=== PATIENT | male | born 1945 | race Caucasian/White ===

== ENCOUNTER 2017-12-03 10:48 | Emergency (ER) | payer BC ==
--- NOTE | 2017-12-03 11:18 | Emergency Department Record ---
History of Present Illness - General Chief Complaint: Shortness of breath Stated Complaint: WITH A BREATH R SIDE OF CHEST HURTS Time Seen by Provider: 12/03/17 11:11 Source: Patient, Family Mode of Arrival: Ambulatory Limitations: No limitations - History of Present Illness Initial Comments: The patient is here due to a 2 day hx of mild R sided Cp mainly with deep breathing for 2-3 days. He denies any L sided CP, NEIL, sweating or nausea but he did cough up a very small amount of sputum this AM. Per the the patient has had mild coughing in the morning for some time. Presently the patient denies any pain or discomfort. MD Complaint: Cough, Shortness of breath Onset/Timin -: Days(s) Severity: Mild - Related Data Home Medications Medication Instructions Recorded Confirmed Last Taken Aspirin [Aspir-Low] 81 mg PO DAILY 12/03/17 12/03/17 12/03/17 Enalapril Maleate 2.5 mg PO DAILY 12/03/17 12/03/17 12/03/17 Multivitamin [Multiple Vitamins] 1 each PO DAILY 12/03/17 12/03/17 12/03/17 Sertraline HCl [Zoloft] 50 mg PO DAILY 12/03/17 12/03/17 12/03/17 Allergies Allergy/AdvReac Type Severity Reaction Status Date / Time No Known Drug Allergies Allergy Verified 12/03/17 11:04 Travel Screening - Travel/Exposure Within Last 30 Days Have you traveled within the last 30 days?: No - Travel/Exposure Within Last Year Have you traveled outside the [place] in the last year?: No - Additonal Travel Details Have you been exposed to anyone with a communicable illness?: No - Travel Symptoms Symptom Screening: None Review of Systems Constitutional: Denies: Chills, Fever Eyes: Denies: Eye discharge ENT: Denies: Congestion Respiratory: Reports: Cough, Hemoptysis. Denies: Dyspnea Cardiovascular: Reports: Chest pain. Denies: Arrhythmia Endocrine: Denies: Fatigue Gastrointestinal: Denies: Diarrhea Genitourinary: Denies: Dysuria Musculoskeletal: Denies: Arthralgia Past Medical History - SOCIAL HISTORY Smoking Status: Never smoker Alcohol Use: None Drug Use: None - RESPIRATORY Hx Respiratory Disorders: Yes Comment:: as a child - CARDIOVASCULAR Hx Cardio Disorders: Yes Hx Hypertension: Yes - NEURO Hx Neuro Disorders: Yes Hx Dementia: Yes - GI Hx GI Disorders: No - Hx Genitourinary Disorders: Yes Hx Kidney Stones: Yes - ENDOCRINE Hx Endocrine Disorders: Yes Hx Diabetes: Yes - MUSCULOSKELETAL Hx Musculoskeletal Disorders: Yes Hx Arthritis: Yes - PSYCH Hx Psych Problems: Yes Hx Depression: Yes - HEMATOLOGY/ONCOLOGY Hx Hematology/Oncology Disorders: Yes Hx Cancer: Yes (skin) Comment:: skin cancer removed years ago Family Medical History Any Significant Family History?: Yes Hx Cancer: Mother Hx Heart Disease: Father Hx HTN: Father, Mother Physical Exam - General General Appearance: Alert, Cooperative, No acute distress - Head Head exam: Atraumatic, Normocephalic, Normal inspection - Eye Eye exam: Normal appearance, PERRL - Neck Neck exam: Normal inspection, Full ROM. negative: Tenderness - Respiratory Respiratory exam: Normal lung sounds bilaterally. negative: Respiratory distress - Cardiovascular Cardiovascular Exam: Regular rate, Normal rhythm, Normal heart sounds - GI/Abdominal GI/Abdominal exam: Soft, Normal bowel sounds. negative: Tenderness - Extremities Extremities exam: Normal inspection, Full ROM, Normal capillary refill. negative: Calf tenderness, Pedal edema, Tenderness - Neurological Neurological exam: Alert, Normal gait. negative: Abnormal gait, Motor sensory deficit - Skin Skin exam: negative: Rash Course Vital Signs 12/03/17 11:05 Temperature 97.4 F L Pulse Rate 63 Respiratory 16 Rate Blood Pressure 120/69 Pulse Ox 95 - Reevaluation(s) Reevaluation #1: The patient is doing very well at this time. He is resting comfortably with no complaints or CP, SOB, or NEIL. I did discuss the results with the patient's and did recommend short term F/U. The patient has an appointment with his PCP in 2 weeks and his will bring the xray results and labs for further evaluation. 12/03/17 14:15 Medical Decision Making - Data Complexity MDM Data: Labs Ordered and/or Reviewed, X-Ray Ordered and/or Reviewed, EKG Ordered and/or Reviewed - Lab Data Result diagrams: 12/03/17 11:30 12/03/17 11:30 - EKG Data -: EKG Interpreted by Me EKG: No Acute Changes, Normal EKG - Radiology Data Radiology results: Report reviewed (CXR: Neg Chest CT: Neg for PE. Node RLL. Rec short term F/U. ( notified)) Disposition Disposition: Discharge Clinical Impression: Dyspnea Qualifiers: Dyspnea type: unspecified Qualified Code(s): R06.00 - Dyspnea, unspecified Disposition: Home, Self-Care Condition: (2) Stable Instructions: Dyspnea (ED) Additional Instructions: Please continue your regular medicines. Please see your family doctor in 2 weeks as planned and have him go over all the test results. Return to the ER for any problems. Forms: Patient Portal Access Time of Disposition: 14:17 Quality - Quality Measures Quality Measures: N/A - Blood Pressure Screening View Details: Yes Does Patient Have Any of the Following: No Blood Pressure Classification: Pre-Hypertensive BP Reading Systolic Measurement: 120 Diastolic Measurement: 69 Screening for High Blood Pressure: < Pre-Hypertensive BP, F/U Documented > [ G8950] Pre-Hypertensive Follow-up Interventions: Referral to alternative/primary care provider.
[2017-12-03 11:38] LABS: BASO % 0.9 % (0-6); GRAN % 74.4 % (47-80); HEMATOCRIT 48.7 % (42.0-52.0); HEMOGLOBIN 16.2 gm/dl (14.0-18.0); LYMPH % 14.2 % (16-45); MEAN CORPUSCULAR HEMOGLOBIN 27.2 pg (27-33); MEAN CORPUSCULAR HGB CONC 33.3 g/dl (32-36); MONO % 8.5 % (0-9); PLATELET COUNT 180 K/uL (130-400); RED BLOOD COUNT 5.94 M/uL (4.40-5.70); RED CELL DISTRIBUTION WIDTH 13.9 % (11.5-14.5); WHITE BLOOD COUNT W/O DIFF 4.6 K/uL (4.2-12.2)
[2017-12-03 11:48] LABS: BLOOD UREA NITROGEN 18 mg/dL (8-23); CREATININE 0.9 mg/dL (0.7-1.2); EST GLOMERULAR FILTRATION RATE > 60 mL/min
[2017-12-03 11:49] LABS: TOTAL PROTEIN 7.5 g/dL (6.6-8.7)
[2017-12-03 11:50] LABS: GLUCOSE,RANDOM 187 mg/dL (74-109)
[2017-12-03 11:53] LABS: ALB/GLOB RATIO 1.2 (1.1-1.8); ALBUMIN 4.1 g/dL (4.0-5.0); ALKALINE PHOSPHATASE 75 U/L (40-129); ALT/SGPT 19 U/L (<41); AST/SGOT 19 U/L (10.0-50.0); CREATINE PHOSPHOKINASE 78 U/L (39-308)
[2017-12-03 11:54] LABS: PARTIAL THROMBOPLASTIN TIME 25.2 SECONDS (24.5-39.1)
[2017-12-03 11:55] LABS: CKMB 1.7 ng/mL (<6.73)
[2017-12-03] MEDS ORDERED: 0.9 % SODIUM CHLORIDE 1,000 ML BAG IV ONE (12:18)
--- NOTE | 2017-12-04 08:48 | RADIOLOGY REPORT ---
EXAM: CHEST 2 VIEWS HISTORY: COUGH. TECHNIQUE: Frontal and lateral views of the chest. COMPARISON: None. FINDINGS: The heart size is normal. Lungs are clear. No pneumothorax. IMPRESSION: NEGATIVE CHEST. JOB NUMBER: [id number] MTDD
--- NOTE | 2017-12-04 09:06 | CT ANGIOGRAM REPORT ---
EXAM: CT ANGIOGRAM CHEST CTA w contrast HISTORY: DIFFICULTY BREATHING. TECHNIQUE: CTA chest performed using pulmonary embolus protocol following IV administration of 86 mL Omnipaque-350 contrast. Axial images were obtained with coronal and sagittal MIP reconstructions. COMPARISON: None. FINDINGS: The mediastinal vasculature enhances normally. There is no intraluminal filling defect, thoracic aortic aneurysm, or dissection. No mediastinal or hilar adenopathy. The heart and pericardium are unremarkable. Limited evaluation of the upper abdomen shows splenic granulomata. Osseous structures are grossly intact. Calcified granulomata are noted in the lung bases. Visualized airways are patent. No pneumothorax. There is a subpleural nodule in the superior medial segment of the right lung base measuring 4.7 mm. Lungs are otherwise clear. IMPRESSION: 1. NEGATIVE FOR PULMONARY EMBOLUS, THORACIC AORTIC ANEURYSM, OR DISSECTION. 2. A 4.6 MM NODULE IN THE MEDIAL RIGHT LUNG BASE. CONSIDER SHORT-TERM FOLLOW-UP WITH NONEMERGENT CT CHEST IN SIX MONTHS. JOB NUMBER: [id number] MTDD
== END 2017-12-03 14:16 | disposition home or self-care (01) ==
LOC: ER 10:48
DX: R06.00 Dyspnea, unspecified (principal); R07.89 Other chest pain; R05 Cough; F03.90 Unspecified dementia, unspecified severity, without behavioral disturbance, psychotic disturbance, mood disturbance, and anxiety; I10 Essential (primary) hypertension; E11.9 Type 2 diabetes mellitus without complications
CPT/HCPCS: 99284 ×2; 82550; 85025; 85730; 85610; 82553; 80053; 84484; 85379; 71046; 71275; 93005; 93010; Q9967; J7030

== ENCOUNTER 2017-12-09 20:17 | Emergency (ER) | payer BC ==
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
== END 2017-12-09 22:03 | disposition home or self-care (01) ==
LOC: ER 20:17
DX: K59.09 Other constipation (principal); R10.9 Unspecified abdominal pain; I10 Essential (primary) hypertension; E11.9 Type 2 diabetes mellitus without complications
CPT/HCPCS: 99282

== ENCOUNTER 2018-02-12 00:20 | Emergency (ER) | payer BC ==
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
== END 2018-02-12 00:56 | disposition home or self-care (01) ==
LOC: ER 00:20
DX: R04.0 Epistaxis (principal); I10 Essential (primary) hypertension; F03.90 Unspecified dementia, unspecified severity, without behavioral disturbance, psychotic disturbance, mood disturbance, and anxiety; E11.9 Type 2 diabetes mellitus without complications
CPT/HCPCS: 99282

== ENCOUNTER 2018-04-22 20:11 | Emergency (ER) | payer BC ==
[2018-04-22 20:41] LABS: URINE APPEARANCE CLOUDY; URINE BILIRUBIN MODERATE (NEGATIVE); URINE BLOOD LARGE (NEGATIVE); URINE COLOR RED; URINE KETONE 15 mg/dL (NEGATIVE); URINE LEUKOCYTE ESTERASE MODERATE (NEGATIVE); URINE NITRITE POSITIVE (NEGATIVE)
[2018-04-22] MEDS ORDERED: TMP/SMZ 160MG/800MG TAB PO ONE (20:42)
[2018-04-22 20:48] LABS: URINE PROTEIN 300 mg/dL (NEGATIVE)
[2018-04-22 20:52] LABS: URINE BACTERIA FEW; URINE EPITHELIAL CELLS 0 - 2 (FEW)
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
[2018-04-22] MEDS: CIPROFLOXACIN HCL 500 MG TABLET PO ONE (21:06)
== END 2018-04-22 21:11 | disposition home or self-care (01) ==
LOC: ER 20:11
DX: N39.0 Urinary tract infection, site not specified (principal); R31.0 Gross hematuria; I10 Essential (primary) hypertension
CPT/HCPCS: 81001; 99282

== ENCOUNTER 2018-09-06 16:18 | Emergency (ER) | payer BC ==
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
[2018-09-06] MEDS ORDERED: CEPHALEXIN 500 MG CAPSULE PO STA (18:10)
[2018-09-06 18:12] LABS: URINE BILIRUBIN NEGATIVE (NEGATIVE); URINE BLOOD LARGE (NEGATIVE); URINE COLOR ORANGE; URINE GLUCOSE (UA) NEGATIVE (NEGATIVE); URINE KETONE NEGATIVE (NEGATIVE); URINE LEUKOCYTE ESTERASE TRACE (NEGATIVE); URINE NITRITE NEGATIVE (NEGATIVE); URINE PROTEIN TRACE (NEGATIVE); URINE UROBILINOGEN 0.2 E.U./dL (0.20 - 1.00)
[2018-09-06 18:14] LABS: URINE APPEARANCE SL CLOUDY
[2018-09-06 18:20] LABS: URINE RBC >50 (NONE SEEN); URINE WBC 0 - 2 (0-2/hpf)
[2018-09-06 18:21] LABS: URINE BACTERIA FEW; URINE SQUAMOUS EPITHELIAL CELL 0 - 2 /hpf
== END 2018-09-06 18:56 | disposition home or self-care (01) ==
LOC: ER 16:18
DX: N30.01 Acute cystitis with hematuria (principal); E11.9 Type 2 diabetes mellitus without complications; I10 Essential (primary) hypertension; F03.90 Unspecified dementia, unspecified severity, without behavioral disturbance, psychotic disturbance, mood disturbance, and anxiety; Z79.01 Long term (current) use of anticoagulants
CPT/HCPCS: 81001; 99282; 99283